=== PATIENT | female | born 1995 | race Hispanic/Latino ===

== ENCOUNTER 2023-01-29 08:35 | Day surgery (SDC) | payer BC ==
[2023-01-28 08:59] VITALS: BMI 17.9
[2023-01-29] MEDS ORDERED: Bupivacaine HCl 0.5%/Epinephrine 1:200,000/PF 30 ml Vial ONE (10:25)
[2023-01-29] MEDS ORDERED: Neomycin-Polymyxin 1 ML AMP ONE (10:26)
[2023-01-29] MEDS ORDERED: CEFAZOLIN 2 GM VIAL ONE (10:35)
[2023-01-29] MEDS ORDERED: Midazolam HCl 2 mg/2 ml Vial ONE (10:40)
[2023-01-29] MEDS ORDERED: PROPOFOL 20 ML ONE ×2 (10:46→10:48)
[2023-01-29] MEDS ORDERED: fentaNYL 50 mcg/mL 1 mL Vial ONE (10:47)
[2023-01-29] MEDS ORDERED: Dexamethasone 4 mg/ml Vial ONE (10:47)
[2023-01-29] MEDS ORDERED: Ondansetron PF 4 MG/2 ML Vial ONE (10:47)
[2023-01-29] MEDS ORDERED: Lidocaine 1% PF 5 ML VIAL ONE (10:47)
[2023-01-29] MEDS ORDERED: ePHEDrine Sulfate 50 MG/10 ML VIAL ONE (11:00)
[2023-01-29] MEDS ORDERED: Ketorolac Tromethamine 30 MG/ML VIAL ONE (11:46)
== END 2023-01-29 12:50 | disposition home or self-care (01) ==
LOC: CSHSDC 08:35
PROVIDERS: ATTEND Orthopaedic Surgery
PROC: 0LQ60ZZ Repair Left Lower Arm and Wrist Tendon, Open Approach (ICD-10-PCS; principal; 2023-01-29)
DX: S64.02XA Injury of ulnar nerve at wrist and hand level of left arm, initial encounter (principal); S66.822A Laceration of other specified muscles, fascia and tendons at wrist and hand level, left hand, initial encounter; F32.A Depression, unspecified; Z79.899 Other long term (current) drug therapy; W25.XXXA Contact with sharp glass, initial encounter
CPT/HCPCS: J1100; J1885; J2250; J2405; J2704; J3010

== ENCOUNTER 2023-07-18 19:04 | Emergency (ER) | payer BC, OTHER ==
[2023-07-18] MEDS ORDERED: Ondansetron PF 4 MG/2 ML Vial ONE (20:02)
[2023-07-18 20:36] LABS: #Monocytes 0.2 10x3/uL (0.0-1.1); #Neutrophils 17.4 10x3/uL (1.5-8.4); %Basophils 0.2 % (0.0-2.0); %Lymphocytes 4.1 % (18.0-47.0); %Monocytes 1.2 % (0.0-10.0); %Neutrophils 94.1 % (40.0-75.0); Hematocrit 39.1 % (34.9-44.5); Hemoglobin 13.8 g/dL (12.0-15.5); Mean Corpuscular HGB CONC 35.3 g/dL (32.0-36.0); Mean Corpuscular Hemoglobin 32.7 pg (27.0-33.0); Mean Corpuscular Volume 92.7 fl (81.6-98.3); Platelet Count 360 10x3/uL (150-450); RBC Distribution Width 11.5 % (11.5-14.5); Red Blood Cell (RBC) Count 4.22 10x6/uL (3.90-5.03); White Blood Cell (WBC) Count 18.4 10x3/uL (3.5-10.5)
[2023-07-18 20:44] LABS: ALT (SGPT) 22 U/L (8-55); AST (SGOT) 23 U/L (5-34); Alkaline Phosphatase 54 U/L (40-110); Anion Gap 20 mmol/L (10-20); BUN (Urea Nitrogen) 14 mg/dL (7.0-18.7); Bilirubin, Total 0.6 mg/dL (0.2-1.2); Calc. Creatinine Clearance 0 mL/min (70-130); Calcium 9.7 mg/dL (7.8-10.44); Carbon Dioxide 20 mmol/L (22-29); Chloride 103 mmol/L (98-107); Estimated GFR 119; Globulin 2.9 g/dL (2.4-3.5); Glucose 149 mg/dL (70-105); Protein, Total 7.9 g/dL (6.0-8.3); Sodium 139 mmol/L (136-145)
[2023-07-18] MEDS ORDERED: Haloperidol Lactate 5 MG/ML VIAL ONE (20:54)
[2023-07-18 21:03] LABS: SARS-CoV-2 NAA Rapid Test Not Detected (NotDetected)
[2023-07-18 21:34] LABS: Bilirubin Neg (Negative); Blood, Urine 50 (Negative); Clarity Clear (Clear); Glucose, Urine (Dipstick) 100 mg/dL (Negative); Ketone, Urine 150 mg/dL (Negative); Leukocyte Negative (Negative); Nitrite Negative (Negative); Protein, Urine (Dipstick) 30 mg/dl (Neg-Trace); Urobilinogen Normal mg/dL (Less than 2)
[2023-07-18 21:41] LABS: Pregnancy Test - Urine (BHCG) Negative (Negative)
[2023-07-18 21:42] LABS: Pregu Control Background? CLEAR/WHITE (CLR/WHITE); Pregu Control Bar Appear? YES (CONTROL BAR)
[2023-07-18 21:44] LABS: Amphetamine Not Detected (NotDetected); Barbiturates Screen Not Detected (NotDetected); Benzodiazepine Screen Not Detected (NotDetected); Cocaine Metabolite Screen Not Detected (NotDetected); Methadone Not Detected (NotDetected); Methamphetamine Not Detected (NotDetected); Opiate Screen Not Detected (NotDetected); Oxycodone Screen Not Detected (NotDetected); Phencyclidine (PCP) Not Detected (NotDetected); THC/Cannabinoid Screen Detected (NotDetected); Tricyclic Screen Not Detected (NotDetected)
[2023-07-18 21:50] LABS: CAUTI Indications for Culture Pelvic or flank pain; RBC/HPF 0-3 HPF (0-3); Squamous Epithelial 0-3 HPF (0-3); WBC/HPF 0-3 HPF (0-3)
[2023-07-18 21:51] LABS: Bacteria/HPF None Seen HPF (None Seen)
[2023-07-18 21:52] LABS: Urine Culture Reflex No No
== END 2023-07-18 22:06 | disposition home or self-care (01) ==
LOC: CSHERS 19:04
DX: R11.2 Nausea with vomiting, unspecified (principal)
CPT/HCPCS: 36415; 80053; 80306; 81001; 81025; 85025; 93005; 96361; 96374; 96375; J1630; J2405